=== PATIENT | female | born 1935 | race Caucasian/White ===

== ENCOUNTER 2018-05-27 06:14 | Inpatient (IN) ==
--- NOTE | 2018-05-27 06:29 | History & Physical Report ---
Date of Encounter: 05/27/18 Time of Encounter: 06:29 24 Hour HP Update - Instructions Instructions: If the History and Physical is less than 30 days old and was completed prior to A.M. admission and or procedure and has NOT been updated on calendar day of procedure please complete this update prior to performing procedure. - Update Patient reports changes in Medical Condition: No Changes in examination, assessment, or condition: No Changes in Medication: No Preop tests/diagnostics Reviewed: Yes Surgery Remains Indicated: Yes Consent for Planned Operative Procedure(s) Verified: Yes - Pre-Operative Checklist Preoperative Checklist Indicated: No Prophylactic Antibiotic Ordered: Yes Is VTE Prophylaxis Indicated?: Yes
[2018-05-27] MEDS ORDERED: CeFAZolin Syr 2,000MG/20 ML 2,000 MG/20 ML SYRINGE IVPB ONE (06:33)
[2018-05-27] MEDS ORDERED: Ringers Solution, Lactated 1,000 ML IVC SCH ×2 (06:45→13:27)
[2018-05-27] MEDS ORDERED: Lidocaine -MPF 2% 2 ML VIAL ONE (06:57)
[2018-05-27] MEDS ORDERED: *HR* Succinylcholine 200 MG/10 ML VIAL IVP ONE (06:57)
[2018-05-27] MEDS ORDERED: Ondansetron 4 MG/2 ML VIAL ONE (06:57)
[2018-05-27] MEDS ORDERED: Dexamethasone 4 MG/ML VIAL ONE (06:57)
[2018-05-27] MEDS ORDERED: *HR* Propofol 200 MG/20 ML VIAL IVP ONE (06:57)
[2018-05-27] MEDS ORDERED: Lidocaine -MPF 4% 5 ML AMPUL ONE (07:04)
[2018-05-27] MEDS ORDERED: *HR* FentaNYL (PF) 100 MCG/2 ML VIAL ONE (07:06)
--- NOTE | 2018-05-27 07:17 | Anesthesia Evaluation PreOp ---
Date of Encounter: 05/27/18 Time of Encounter: 07:17 - Past History Planned Operation: Left Total Shoulder Cardiac History: HTN, Hyperlipidemia Pulmonary History: Denies Any Significant HX IP PARALEGAL History: CVA (S/P CVA in 1999 residual sensitivity to sound, last dose plavix 05/26/2018 at 0700) Other Medical History: Other (glaucoma) Anesthesia History: No Prior Anesthetic Complications, Past Anesthesia Alcohol Use: none Drug use: none Medications and Allergies Ciprofloxacin [Cipro] 500 mg PO BID #14 tablet 01/22/17 [Rx] Plavix 01/22/17 [History] Allergy/AdvReac Type Severity Reaction Status Date / Time bromide salts Allergy Hives Verified 01/22/17 17:41 fentanyl Allergy Confusion Verified 01/22/17 17:41 - Meds/Allergy Pre-op Review Medications Reviewed: Yes Allergies Reviewed: Yes Beta Blockers on Current Med List: No Anesthesia Results - Labs Laboratory Tests 05/23/18 05/23/18 05/23/18 09:55 09:55 09:55 WBC 9.5 Hgb 14.8 Hct 44.5 Plt Count 217 PT 11.5 INR 1.0 APTT 28.1 Sodium 137 Potassium 4.2 BUN 16 Creatinine 0.57 L - Imaging EKG: report reviewed (05/23/2018 SINUS RHYTHM WITH SINUS ARRHYTHMIA LEFT ATRIAL ENLARGEMENT BORDERLINE LEFT AXIS DEVIATION POSSIBLE RIGHT VENTRICULAR CONDUCTION DELAY) Anesthesia Exam O2 Sat Height 1.73 m Height 1.73 m Weight 57.606 kg Weight 57.606 kg O2 Sat by Pulse Oximetry 92 Vital Signs Temp Pulse Resp BP Pulse Ox 97.6 F 80 18 150/90 92 05/27/18 06:36 05/27/18 06:36 05/27/18 06:36 05/27/18 06:36 05/27/18 06:36 Height: 5'8'' Weight: 127 lbs NPO (# of Hours): 8 Pain Scale: 0 Pain Scale Used: Numeric (1 - 10) - HEENT Pupil (Motor): EOMI Mallampati: II Teeth: Normal Denture Type: Lower: Partial Oral Opening: Greater than 3 - IP PARALEGAL LOC: Oriented IP PARALEGAL Motor: Normal RUE, Normal LUE, Normal RLE, Normal LLE, Normal Face IP PARALEGAL Sensory: Normal: RUE, LUE, RLE, LLE, Face - Cardiac Rhythm: Regular Murmur: None - Pulmonary Breath Sounds: bilateral Clear Respiratory Effort: Symmetrical Anesthesia Assess/Plan ASA Score: 3 Level of consciousness: Cooperative, Oriented, Tranquil Anesthetic Plan: General, Regional Nerve Block Regional Nerve Block Plan: Supraclavicular Monitoring Plan: Standard Monitors Recovery Plan: PACU
[2018-05-27] MEDS ORDERED: ROPIVACAINE HCL/PF 0.5% 30 ML VIAL ONE (07:19)
[2018-05-27] MEDS ORDERED: Bupivacaine/Clonidine Syringe 1 EACH SYRINGE ONE (07:19)
[2018-05-27] MEDS ORDERED: Ethanol\\Acetic Acid\\Na Ace\\Ben 1,000 ML IRRIG.SOLN IR ONE (07:39)
[2018-05-27] MEDS ORDERED: EPHEDrine 50 MG/ML VIAL ONE (08:10)
[2018-05-27] MEDS ORDERED: *HR* Promethazine 25 MG/ML VIAL IVP PRN (08:25)
[2018-05-27] MEDS ORDERED: *HR* OxyCODONE Immed Rel 5 MG TABLET PO PRN ×2 (08:25→13:27)
--- NOTE | 2018-05-27 08:29 | Anesthesia Procedures ---
Date of Encounter: 05/27/18 Time of Encounter: 07:55 Procedures: Anesthesia - Nerve Block Procedure Date: 05/27/18 Time: 07:55 Surgical Procedure: left shoulder total Checklist: Correct Patient Identifier, Correct procedure, History checked Correct side: Left Monitor Applied: EKG, BP, Pulse Oximetry Supplemental Oxygen via Nasal Cannula (L/min): 2 Sedation: Fentanyl (mcg): 50 Indication: Post Op Analgesia Pre-op Neuro Deficits: No Block Type: Supraclavicular, Other (ICB/ICP) Catheter placed: No Sterile Technique: Yes Ultrasound used: Yes Anatomy identified: Yes Visual spread of Local: Yes Neuro Stimulation: No Blood on Needle Aspiration: No Smooth Injection of Local: Yes Pain with Injection of Local: No Prep: Chlorhexadine Needle: 22 x 50 mm Stimuplex Local: 0.25% Bupivicaine w/Clonidine 20 mcg/cc (8ml ), Ropivacaine (0.5% with 8mg of decadron 30 ml) Volume (cc): 38 total Number of Attempts: 1 Complications: None/effective block Vitals: Vital Signs/O2 Sat, Most Current Temp Pulse Resp BP Pulse Ox 97.6 F 67 18 184/102 98 05/27/18 06:36 05/27/18 07:45 05/27/18 07:45 05/27/18 07:54 05/27/18 07:45
--- NOTE | 2018-05-27 08:53 | Orthopedic Operative Note ---
Date of procedure: 05/27/18 Pre-op diagnosis: left shoulder cuff tear arthropathy Post-op diagnosis: same Procedure: Procedure: Total Shoulder Replacment Reverse, left Estimated blood loss: 50 cc Hardware: Metal and polyethylene replacement: Arthrex 24, +4 , 25 screw glenoid baseplate, 2 4.5 screws. 2 5.5 screw, 39+4 glenosphere, 8 apex humeral stem, poly insert 6 Kristin Exam Under anesthesia: Full motion anterior instability Procedural Notes: Grade 4 arthritic changes humeral head glenoid socket, significant gleno humeral medialization. Tear rotator cuff Operative procedure: The patient was brought to the operating room and placed on the operating room table. After general anesthesia was administered the operative shoulder was examined. Findings were noted. The patient was placed in the modified beachchair position. All pressure points were padded appropriately. And the head was stabilized in the neutral position. The operative extremity was prepped and draped in the sterile surgical fashion. The patient received IV antibiotics prior to skin incision. A standard deltopectoral approach was made to the operative shoulder. Incision was made to the skin and subcutaneous tissue,hemo stasis was obtained with Bovie cautery. Using careful blunt dissection the cephalic vein was identified and mobilized medially. The deltopectoral interval was developed and the clavipectoral fascia was incised. The subscap was released off the lesser tuberosity and tagged with #2 FiberWire suture subscap irreparable. The humerus was dislocated patient noted to have irreparable tear supraspinatus tendon, and the humeral cut was made along the anatomic neck. Patient noted to have significant medialization, grade 4 arthritic changes glenoid and humeral head. Anterior and posterior Bankart retractors were placed to expose the glenoid. The glenoid guide was seated and the centering hole was made. It was reamed with the appropriate reamer. The 24, +4, 25 mm screw, baseplate was seated and secured with (2) 4.5 screws and 2 5.5 screw. The baseplate was irrigated and dried and the 39+4 Glenosphere was seated and secured with the Lindsey taper. The Linsdey taper was tested and found to be secure the humerus was redislocated and prepared with the diaphyseal reamers, followed by a broaching process up to the appropriate size 8 apex in the patient's anatomic version. The metaphyseal reamer was then utilized. Trial reduction found the shoulder to be relocatable. Trial components were removed and 8 apex stem was impacted in place in the patient's anatomic version. Trial reduction found the shoulder to be relocatable and stable with the appropriate 6 Kristin Trial component was removed and the real implant was seated and secured the shoulder was reduced. The shoulder had excellent motion and excellent stability and no evidence of dislocation. The deep tissue was irrigated with pulse irrigation. The PA close the shoulder. The deltopectoral interval was closed with a running #1 PDS suture, subcutaneous tissue was irrigated and closed with 0 PDS suture, the skin was closed with Dermabond. The patient was placed in a sterile dressing, abduction brace and extubated. The patient was then transferred to the recovery room in stable condition. Anesthesia: FREIDA Surgeon: Lamberto Farga Was there an assistant professor of biochemistry present: Yes Hearing Examiner: Iona Palacios Estimated blood loss (cc): 50 Condition: stable Disposition: PACU
[2018-05-27 09:40] LABS: Hematocrit 41.2 % (35.3-44.9); Hemoglobin 13.6 g/dL (11.5-15.4)
--- NOTE | 2018-05-27 09:42 | Anesthesia Evaluation Post Op ---
Date of Encounter: 05/27/18 Time of Encounter: 09:41 - Vital Signs Vital Signs: Vital Signs/O2 Sat, Most Current Temp Pulse Resp BP Pulse Ox 98.7 F 66 13 146/89 99 05/27/18 09:35 05/27/18 09:35 05/27/18 09:35 05/27/18 09:35 05/27/18 09:35 - Lungs Lungs: Clear Ascult./Percussion - Airway Airway: Non-obstructed - Cardiovascular Regular Rate - Mental Status Mental Status: Alert & Oriented, Answers Appropriately - Pain Pain Scale: 0 Pain Scale used: Numeric (1 - 10) - Nausea Vomiting Nausea Vomiting: Not Present - Hydration Hydration: Ice chips, Has not voided - Discharge PostOp Status: Transfer Patient to floor
[2018-05-27] MEDS ORDERED: Sennosides 8.6 MG TABLET PO PRN (13:27)
[2018-05-27] MEDS ORDERED: Temazepam 15 MG CAPSULE PO PRN (13:27)
[2018-05-27] MEDS ORDERED: NON-FORMULARY MEDICATION 1 EACH EACH (Alendronate Sodium [Alendronate Sodium] 70 MG) PO SCH (13:27)
[2018-05-27] MEDS ORDERED: Ondansetron 4 MG/2 ML VIAL IVP PRN (13:27)
[2018-05-27] MEDS ORDERED: MOM Conc 10 ML UD.LIQ PO PRN (13:27)
[2018-05-27] MEDS ORDERED: Naloxone 0.4 MG/ML INJ IVP PRN (13:27)
[2018-05-27] MEDS ORDERED: traMADol 50 MG TABLET PO PRN (13:27)
--- NOTE | 2018-05-27 16:35 | Discharge Summary ---
Orders not resulted at time of discharge: Pending orders 05/27/18 07:34 US anesthesia pain block [US] Routine 05/27/18 08:51 Surgical Pathology [PTH] Routine 05/28/18 04:00 Basic Metabolic Panel AM 0400 Hemoglobin and Hematocrit [HEME] AM 0400 05/29/18 04:00 Basic Metabolic Panel AM 0400 Hemoglobin and Hematocrit [HEME] AM 0400 Date of Encounter: 05/31/18 Time of Encounter: 11:12 - Discharge Diagnosis (1) Status post reverse total replacement of left shoulder Priority: Primary Status: Acute Comments: Opsite dressing, leave intact until first post-operative visit. Zipline in place, plan to remove at post-operative day #14-16. If dressing becomes >50% saturated, contact office, remove dressing and place appropriate dressing in its place. Do not allow for dressing to get wet. Shoulder Precautions x 6 weeks. Apply cold therapy wrap 3-6x/day for 20 minutes at a time. Encourage ambulation throughout the day. Use Incentive spirometer 10x/hour. Elevate affected extremity above heart as tolerated. NWB to affected upper extremity x 6 weeks. Will remove brace at first post-operative appointment. OK to remove during PT/OT and Home exercises. (2) Rotator cuff arthropathy of left shoulder Priority: Primary Status: Acute (3) HTN (hypertension) Priority: Secondary Status: Chronic Qualifiers: Hypertension type: essential hypertension Qualified Code(s): I10 - Essential (primary) hypertension (4) History of CVA (cerebrovascular accident) Priority: Secondary Status: Chronic (5) Constipation Priority: Secondary Status: Acute Comments: Chronic in nature 05/29 - Abdominal pain, afebrile. WBC normal. XRAY showed fecal impaction in rectum Disimpaction on 05/29 evening; improvement with abdominial pain Resolved by 05/30. Qualifiers: Constipation type: unspecified constipation type Qualified Code(s): K59.00 - Constipation, unspecified - Hospital Course Hospital course: Ms. Yost is a 82 year old female, POD#3Left TSR-reverse - ] . Patient had uneventful postoperative course. Stable for discharge. Patient seen at bedside, without complaints. A&O x 3 Afebrile, vital signs stable. Vital Signs Temp Resp BP Pulse Ox 05/30/18 14:07 98.1 F 16 131/78 98 Labs reviewed. H/H - stable, asymptomatic Laboratory Results - last 48 hr 05/29/18 17:19 WBC 11.8 H RBC 3.72 L Hgb 12.1 Hct 35.5 MCV 95.4 MCH 32.5 MCHC 34.1 RDW 12.6 Plt Count 198 MPV 11.0 Immature Gran % 0.3 Seg Neutrophils % 73.8 Lymphocytes % 15.6 Monocytes % 9.1 Eosinophils % 0.8 Basophils % 0.4 Neutrophils # 8.7 Lymphocytes # 1.8 Monocytes # 1.1 Eosinophils # 0.1 Basophils # 0.1 Pain control: adequate Participating in PT. All questions and concerns addressed. Educated on use of incentive spirometer. Encouraged ambulation and proper hydration. Patient educated on post-operative restrictions and post-operative care. Assessment and plan: Continue with postoperative care Constipation: Disimpacted on 05/30 - no abdominal pain at discharge. Discharge plan: [facility] , discharge today - Time Spent with Patient Total time spent providing and/or coordinating discharge services: - Discharge Medications Home Medications: RX: Alendronate Sodium 70 mg PO MO 05/27/18 [History] RX: Atorvastatin Calcium [Lipitor] 20 mg PO HS 05/27/18 [History] RX: Celecoxib [Celebrex] 200 mg PO DAILY 05/27/18 [History] RX: Cholecalciferol (D-3) [Vitamin D] 2,000 unit PO DAILY 05/27/18 [History] RX: Clopidogrel [Plavix] 75 mg PO DAILY 05/27/18 [History] RX: Glucosamine Sulfate Dipot Chlr [Glucosamine] 1,000 mg PO DAILY 05/27/18 [History] RX: Latanoprost [Xalatan] 1 drop BOTH EYES HS 05/27/18 [History] RX: Lisinopril [Zestril] 20 mg PO DAILY 05/27/18 [History] RX: Loratadine [Allergy Relief] 10 mg PO DAILY 05/27/18 [History] RX: Multivitamin [One Daily Essential] 1 tab PO DAILY 05/27/18 [History] RX: Oxybutynin Chloride [Ditropan Xl] 10 mg PO DAILY 05/27/18 [History] RX: Timolol Maleate 0.5% 1 drop BOTH EYES BID 05/27/18 [History] RX: Ubidecarenone/Vit E Acetate [Co Q-10 100 mg Softgel] 1 cap PO DAILY 05/27/18 [History] RX: OxyCODONE Immed Rel [Roxicodone 5 MG] 5 mg PO Q4HR PRN MDD PAin 05/30/18 [History] Allergies/Adverse Reactions: Allergy/AdvReac Type Severity Reaction Status Date / Time bromide salts Allergy Hives Verified 05/27/18 07:34 fentanyl AdvReac Rash Verified 05/27/18 07:34 Date of admission: 05/27/18 12:04 Primary care physician: Melissa Cotto Consults: 05/27/18 13:27 Consult to Occupational Therapy [CONS] Routine Comment: post shoulder surgery Reason for Consult: post shoulder surgery Does patient have active BEDREST order?: No Is patient medically & hemodynamically stable?: Yes Consult to Physical Therapy [CONS] Routine Comment: post shoulder surgery Reason for Consult: post shoulder surgery Does patient have active BEDREST order?: No Is patient medically & hemodynamically stable?: Yes RT Post Op Consult [CONS] Routine 05/27/18 14:25 Consult to Process Designer [CONS] Routine Reason for SW Consult: Discharge planning Anticipated date of discharge: 05/30/18 - VTE Documentation of Mechanical Device: Venous foot pump, device Labs on day of discharge: Labs from last 24 hours 05/27/18 09:23 Hgb 13.6 Hct 41.2 - Impressions ITS Impressions Shoulder X-Ray 05/27/18 08:04 IMPRESSION: Normal postoperative changes of recent reverse left shoulder arthroplasty. D/ / 05/27/2018 12:27:14 Jeet Leal MD / [facility] Interpreting Provider: Jeet Leal MD - Patient Status Disposition: Transfer Inpatient Rehab Fac Condition: Good Functional capacity at discharge: independent ambulation Overall status at discharge: patient is progressing back to baseline - Discharge Instructions Follow Up With: Iona Falk DO [Primary Care Provider] - Additional Instructions: Discharge Instructions: Total Shoulder Please call [facility] ([phone]), your Primary Care Physician, or report to the Emergency Room if you have any of the following symptoms: Nausea, vomiting, fever greater that 101.5, swelling, chest pain, shortness of breath, increased pain/redness/drainage/odor for your incision site, numbness/tingling, or any other concerning symptoms. ACTIVITY: Always keep your arm in the sling. Do not raise your arm away from your body. Do not use your arm to help with getting in or out of bed. No weight bearing permitted. Only perform those exercises given to you by your therapist. Incentive Spirometer 10 times an hour. MEDICATIONS: Upon discharge resume your home medications. Take all the medications as prescribed. Take a stool softener if taking narcotic pain medications. Stool softeners are only effective if you drink enough fluids. Drink 6-8 glass of water or fluids a day, unless this is not allowed for another health problem. Despite using stool softeners, if you haven't had a bowel movement in 3 days, please switch to a gentle laxative. Gentle laxatives are sold over the counter. You should have a bowel movement within 24 hours, if not call the office. You will be discharged from the hospital with a prescription for pain medication. You are encouraged to decrease the use of narcotic pain medication as tolerated. Should you require a refill, please call the office. [facility] prescribes narcotic pain medication for only 4-6 weeks after surgery. If you require pain medication beyond this time period, you may be referred to your Primary Care Physician or to the Pain Clinic for further evaluation. Plan ahead for refills on pain medication as many narcotics either need to be picked up at the office or mailed. It is best to call 48-72 hours in advance of needing a prescription refill so you don't run out of medication. To help control the post-operative pain, you may take NSAIDs (Aleve,Advil, Motrin, Ibuprofen, Naprosyn) or Tylenol as prescribed on the bottle in addition to the pain medication. WOUND CARE: Leave the dressing on for 7-10 days. You may change the dressing if it becomes saturated greater than 50%. Do not get the dressing wet at anytime. Wash your hands with antibacterial soap, rinse and dry prior to any wound care. If you have ron the visiting nurse or rehab facility can remove the stapes 10-14 days after surgery and place steri-strips across the wound. Leave the steri-strips in place until they fall off on their own. You may let water from the shower run on top of the steri-strips. If you do not have a visiting nurse or rehab facility, you will need to return to the office at 10-14 days for the ron to be removed. If you have itching or redness around the dressing call the office. FOLLOW-UP: Please follow up with your surgeon in the orthopedic clinic, as scheduled
[2018-05-27] MEDS: Loratadine 10 MG TABLET PO SCH (17:24)
[2018-05-27] MEDS: Cholecalciferol (D-3) 1,000 UNIT TABLET PO SCH (17:25)
[2018-05-27] MEDS: Lisinopril 20 MG TABLET PO SCH (17:25)
[2018-05-27] MEDS: Multivit/Ca/Min/Fe/FA 1 TAB TABLET PO SCH (17:25)
[2018-05-27] MEDS: *HR* Enoxaparin 30 MG/0.3 ML SYRINGE SQ SCH (17:27)
[2018-05-27] MEDS ORDERED: *HR* Enoxaparin 30 MG/0.3 ML SYRINGE SQ SCH (18:00)
--- NOTE | 2018-05-27 19:48 | Physician Discharge Referral ---
ExtendedCare Referral Info Transfer To: [facility] Provider in Charge: Provider in Charge after Transfer: PCP Institutional Level of Care: Skilled - Diagnosis (1) Status post reverse total replacement of left shoulder Priority: Primary Status: Acute (2) Rotator cuff arthropathy of left shoulder Priority: Primary Status: Acute (3) HTN (hypertension) Priority: Secondary Status: Acute (4) History of CVA (cerebrovascular accident) Priority: Secondary Status: Acute Expected Duration of Placement: < 30 days Prognosis: Good Aware of Diagnosis: Patient Aware of Prognosis: Patient - Transfer Medications Home Medications: Alendronate Sodium 70 mg PO MO 05/27/18 [History] Atorvastatin Calcium [Lipitor] 20 mg PO HS 05/27/18 [History] Celecoxib [Celebrex] 200 mg PO DAILY 05/27/18 [History] Cholecalciferol (D-3) [Vitamin D] 2,000 unit PO DAILY 05/27/18 [History] Clopidogrel [Plavix] 75 mg PO DAILY 05/27/18 [History] Glucosamine Sulfate Dipot Chlr [Glucosamine] 1,000 mg PO DAILY 05/27/18 [History] Latanoprost [Xalatan] 1 drop BOTH EYES HS 05/27/18 [History] Lisinopril [Zestril] 20 mg PO DAILY 05/27/18 [History] Loratadine [Allergy Relief] 10 mg PO DAILY 05/27/18 [History] Multivitamin [One Daily Essential] 1 tab PO DAILY 05/27/18 [History] OxyCODONE Immed Rel [Roxicodone 5 MG] 5 mg PO Q6HR PRN 7 Days #28 tablet 05/27/18 [Rx] Oxybutynin Chloride [Ditropan Xl] 10 mg PO DAILY 05/27/18 [History] Timolol Maleate 0.5% 1 drop BOTH EYES DAILY 05/27/18 [History] Tramadol HCl [Ultram] 50 mg PO QID PRN 05/27/18 [History] Ubidecarenone/Vit E Acetate [Co Q-10 100 mg Softgel] 1 cap PO DAILY 05/27/18 [History] Allergies/Adverse Reactions: Allergy/AdvReac Type Severity Reaction Status Date / Time bromide salts Allergy Hives Verified 05/27/18 07:34 fentanyl AdvReac Rash Verified 05/27/18 07:34 - Respiratory Orders None Smoking Cessation: Smoking cessation has been advised. For more information, call the [place] Tobacco Quit Line at 3-605-RUIR-NOW. - Ancillary Orders May use pressure relief devices daily prn, May go on NARESH w/family/respon alliance party w/meds at nurse discretion PRN - Advance Directives Code Status: Full Code - Mobility Orders Ambulate - Rehabiliation Orders Rehab Potential: Good Rehab Orders: Sternal Precautions, ROM Exercises, Evaluation for Physical Therapy, Evaluation for Occupational Therapy - Treatments Skin tear care topically daily PRN per policy, Fleet enema rectally every other day PRN cleansing purposes List/Other: Opsite dressing, leave intact until first post-operative visit. Zipline in place, plan to remove at post-operative day #14-16. If dressing becomes >50% saturated, contact office, remove dressing and place appropriate dressing in its place. Do not allow for dressing to get wet. Shoulder Precautions x 6 weeks. Apply cold therapy wrap 3-6x/day for 20 minutes at a time. Encourage ambulation throughout the day. Use Incentive spirometer 10x/hour. Elevate affected extremity above heart as tolerated. NWB to affected upper extremity x 6 weeks. Will remove brace at first post-operative appointment. OK to remove during PT/OT and Home exercises. - Diet Orders Regular CERTIFICATION: I certify that the transfer of the above named patient to an Extended Care Facility is necessary for the continuing treatment of the diagnosis listed. The above information is true and accurate reflection of patient's current condition. Confidential - Redisclosure prohibited without a patient's written consent.
[2018-05-27] MEDS: Latanoprost 2.5 ML BOTTLE BOTH EYES SCH (20:15)
[2018-05-28 05:50] LABS: Hematocrit 37.5 % (35.3-44.9); Hemoglobin 12.4 g/dL (11.5-15.4)
[2018-05-28] MEDS: *HR* Enoxaparin 30 MG/0.3 ML SYRINGE SQ SCH ×2 (05:54→18:48)
[2018-05-28 06:08] LABS: BUN/Creatinine Ratio 21 (6-26); Blood Urea Nitrogen 13 mg/dL (8-23); Calcium 8.9 mg/dL (8.6-10.3); Carbon Dioxide 24 mEq/L (23-29); Chloride 104 mEq/L (98-107); Glucose 140 mg/dL (70-105); Osmolality,Calculated 286 (280-300); Potassium 3.9 mEq/L (3.5-5.1); Sodium 137 mEq/L (136-145); eGFR For Non-African Americans > 60 (> 60)
--- NOTE | 2018-05-28 06:45 | Orthopedics Progress Note ---
Date of Encounter: 05/28/18 Time of Encounter: 06:44 Subjective Interval history: Patient was seen this morning doing well without complaints. Afebrile vital signs stable. Operative extremity: Neurovascularly intact Dressing clean dry and intact Calves nontender Assessment and plan: Continue with postoperative care Hematocrit 37 Objective Vital signs: Vital Signs Temp Pulse Resp BP Pulse Ox 05/28/18 03:41 98.5 F 82 16 138/70 95 05/27/18 23:42 98.7 F 84 16 114/70 95 05/27/18 20:15 95 05/27/18 18:15 98.3 F 103 16 119/76 95 05/27/18 13:05 94 16 142/91 94 05/27/18 12:05 81 16 167/103 98 05/27/18 11:42 98.7 F 84 16 114/70 95 05/27/18 11:05 97.6 F 80 16 163/96 100 05/27/18 10:35 70 168/92 99 05/27/18 10:19 99 05/27/18 10:05 66 16 169/80 100 05/27/18 09:45 98.7 F 68 14 152/79 99 05/27/18 09:35 98.7 F 66 13 146/89 99 05/27/18 09:25 66 11 141/77 100 05/27/18 09:15 65 14 165/86 100 05/27/18 09:05 97.9 F 78 16 144/83 99 05/27/18 07:54 184/102 05/27/18 07:45 67 18 187/105 98 Intake and Output 05/27/18 05/27/18 05/28/18 15:59 23:59 07:59 Intake Total 200 / 200 240 / 240 300 / 300 Output Total 350 / 350 300 / 300 Balance -150 / -150 240 / 240 0 / 0 Intake: IV Fluids 120 / 120 100 / 100 Ancef Syringe 2,000 MG/20 ML 2, 20 / 20 000 mg In 20 ml @ 200 mls/hr IVPB PREOP ONE Rx#:[id number] Ancef 2,000 MG In 0.9 % Sodium 100 / 100 100 / 100 Chloride 100 ML @ 200 mls/hr IVPB Q8HR JULISA Rx#:[id number] Oral 200 / 200 120 / 120 200 / 200 Output: Urine 300 / 300 300 / 300 Estimated Blood Loss 50 / 50 Other: Meal Dinner Percent of Meal Consumed 100% Weight 57.608 kg Patient Weight 05/28/18 23:59 Weight 57.608 kg - Labs CBC & BMP: 05/28/18 05:15 05/28/18 05:15 Labs: Abnormal lab results Glucose 140 mg/dL (70-105) H 05/28/18 05:15 - VTE Documentation of Mechanical Device: Venous foot pump, device Consult Discharge Plan - Plan Referrals: Iona Falk DO [Primary Care Provider] -
[2018-05-28] MEDS: Loratadine 10 MG TABLET PO SCH (08:44)
[2018-05-28] MEDS: Multivit/Ca/Min/Fe/FA 1 TAB TABLET PO SCH (08:44)
[2018-05-28] MEDS: Cholecalciferol (D-3) 1,000 UNIT TABLET PO SCH (08:45)
[2018-05-28] MEDS: Lisinopril 20 MG TABLET PO SCH (08:46)
[2018-05-28] MEDS: *HR* OxyCODONE/APAP 5/325 TABLET PO PRN ×2 (09:18→15:32)
--- NOTE | 2018-05-28 15:53 | Event Note ---
Date of Encounter: 05/28/18 Time of Encounter: 12:50 PCR - POD#1 s/p left TSR reverse 05/27/18 Patient seen at bedside, without complaints. A&O x 3 Afebrile, vital signs stable. She has HTN and BP has episodes of elevation with pain. asymptomatic dressings had small area of bleeding, appears old. will monitor. NV intact distally. Labs reviewed. H/H - 12.4/37.5 stable, asymptomatic Pain control: adequate Participating in PT. All questions and concerns addressed. Educated on use of incentive spirometer. Encouraged ambulation and proper hydration. Patient educated on post-operative restrictions and post-operative care. Assessment and plan: Continue with postoperative care Discharge plan: [facility], pending acceptance
[2018-05-28] MEDS: (Ubidecarenone/Vit E Acetate [Co Q-10 100 Mg Softgel] PO SCH (19:49)
[2018-05-28] MEDS: Latanoprost 2.5 ML BOTTLE BOTH EYES SCH ×2 (23:21→23:23)
[2018-05-29] MEDS: *HR* Enoxaparin 30 MG/0.3 ML SYRINGE SQ SCH ×2 (05:03→18:18)
[2018-05-29 05:16] LABS: Hematocrit 33.1 % (35.3-44.9); Hemoglobin 11.1 g/dL (11.5-15.4)
[2018-05-29 05:34] LABS: BUN/Creatinine Ratio 24 (6-26); Blood Urea Nitrogen 12 mg/dL (8-23); Calcium 8.5 mg/dL (8.6-10.3); Carbon Dioxide 25 mEq/L (23-29); Chloride 99 mEq/L (98-107); Glucose 120 mg/dL (70-105); Osmolality,Calculated 269 (280-300); Sodium 129 mEq/L (136-145); eGFR For Non-African Americans > 60 (> 60)
--- NOTE | 2018-05-29 08:39 | Orthopedics Progress Note ---
Date of Encounter: 05/29/18 Time of Encounter: 08:38 Subjective Interval history: Patient was seen this morning doing well without complaints. Afebrile vital signs stable. Operative extremity: Neurovascularly intact Dressing clean dry and intact Calves nontender Assessment and plan: Continue with postoperative care Objective Vital signs: Vital Signs Temp Pulse Resp BP Pulse Ox 05/29/18 07:24 98.8 F 87 17 183/95 97 05/29/18 00:12 97.7 F 71 16 153/87 18 05/28/18 21:59 94 05/28/18 19:47 98.3 F 85 16 106/68 94 05/28/18 16:18 97.6 F 71 16 130/68 98 05/28/18 11:30 98.1 F 71 18 149/84 100 Intake and Output 05/28/18 05/29/18 05/29/18 23:59 07:59 15:59 Other: # Voids 1 1 - Labs CBC & BMP: 05/29/18 05:02 05/29/18 05:02 Labs: Abnormal lab results Hgb 11.1 g/dL (11.5-15.4) L 05/29/18 05:02 Hct 33.1 % (35.3-44.9) L 05/29/18 05:02 Sodium 129 mEq/L (136-145) L 05/29/18 05:02 Creatinine 0.49 mg/dL (0.60-1.20) L 05/29/18 05:02 Glucose 120 mg/dL (70-105) H 05/29/18 05:02 Calculated Osmolality 269 (280-300) L 05/29/18 05:02 Calcium 8.5 mg/dL (8.6-10.3) L 05/29/18 05:02 - VTE Documentation of Mechanical Device: Venous foot pump, device Consult Discharge Plan - Plan Referrals: Iona Falk DO [Primary Care Provider] -
[2018-05-29] MEDS: Multivit/Ca/Min/Fe/FA 1 TAB TABLET PO SCH (10:08)
[2018-05-29] MEDS: Lisinopril 20 MG TABLET PO SCH (10:08)
[2018-05-29] MEDS: Cholecalciferol (D-3) 1,000 UNIT TABLET PO SCH (10:09)
[2018-05-29] MEDS: Loratadine 10 MG TABLET PO SCH (10:11)
[2018-05-29] MEDS: (Ubidecarenone/Vit E Acetate [Co Q-10 100 Mg Softgel] PO SCH ×2 (10:14→11:30)
[2018-05-29] MEDS: *HR* OxyCODONE/APAP 5/325 TABLET PO PRN (14:53)
[2018-05-29 17:34] LABS: Basophils # 0.1 K/mcL (0.0-0.2); Basophils % 0.4 %; Eosinophils # 0.1 K/mcL (0.0-0.6); Eosinophils % 0.8 %; Hematocrit 35.5 % (35.3-44.9); Hemoglobin 12.1 g/dL (11.5-15.4); Immature Granulocytes % 0.3 % (0-4); Lymphocytes # 1.8 K/mcL (0.6-4.6); Lymphocytes % 15.6 %; Mean Corpuscular HGB Conc 34.1 g/dL (31.6-35.5); Mean Corpuscular Hemoglobin 32.5 pg (28.0-33.3); Mean Corpuscular Volume 95.4 fL (83.0-100.0); Monocytes # 1.1 K/mcL (0.0-1.3); Monocytes % 9.1 %; Neutrophils # 8.7 K/mcL (1.6-8.9); Platelet Count 198 K/mcL (140-400); Red Blood Count 3.72 M/mcL (3.82-4.97); Red Cell Distribution Width 12.6 % (11.5-14.5); Segmented Neutrophils % 73.8 %
--- NOTE | 2018-05-29 18:52 | Event Note ---
Date of Encounter: 05/29/18 Time of Encounter: 12:00 PCR - POD#2 s/p left TSR reverse 05/27/18 Patient seen at bedside. A&O x 3. Patient in visible discomfort in abdomen. abdomen soft to palpation and patient denies pain, only has discomfort in abdomen. She states she had a small BM yesterday but very uncomfortable since then. She states she often has to disimpact herself at home. Discussed that anesthesia and pain medications can also contribute to constipation. Will add miralax. KUB also ordered and later showed nonobstructive bowel gas patterns with no significiant amount of retained fecal matter in bowels but did have fecal impaction to rectum. Disimpaction recommended. If there is not much improvement to abdomen after this then will plan for CT abdomen and hospitalist consultation for further evaluation. Afebrile, vital signs stable. She has HTN and BP has episodes of elevation with pain. asymptomatic Small amount of drainage on dressing is old same as yesterday. To be changed before discharge. NV intact distally. Later evaluation around 5:30pm and patient concern for increased swelling to elbow. She admits she has been focused on abdominal discomfort and not doing her exercises for motion of elbow. She does have full ROM of elbow and hand with no pain to palpation of arm or with motion. Will proceed with doppler to rule out DVT. Labs reviewed. H/H - .1 stable, asymptomatic NA 129 - will add supplementation Pain control: adequate to shoulder Participating in PT. All questions and concerns addressed. Educated on use of incentive spirometer. Encouraged ambulation and proper hydration. Patient educated on post-operative restrictions and post-operative care. Assessment and plan: Continue with postoperative care Discharge plan: [facility] accepted 05/30, pending abdominal workup
[2018-05-29] MEDS: Latanoprost 2.5 ML BOTTLE BOTH EYES SCH (22:36)
[2018-05-29] MEDS: Simethicone 80 MG TAB.CHEW PO SCH (22:36)
[2018-05-30] MEDS: *HR* Enoxaparin 30 MG/0.3 ML SYRINGE SQ SCH (05:49)
[2018-05-30] MEDS: *HR* OxyCODONE/APAP 5/325 TABLET PO PRN ×2 (06:03→15:42)
--- NOTE | 2018-05-30 06:25 | Orthopedics Progress Note ---
Date of Encounter: 05/30/18 Time of Encounter: 06:25 Subjective Interval history: Patient was seen this morning doing better now that disimpacted. Afebrile vital signs stable. Operative extremity: Neurovascularly intact Dressing clean dry and intact Calves nontender Assessment and plan: Continue with postoperative care Possible discharge today Objective Vital signs: Vital Signs Temp Pulse Resp BP Pulse Ox 05/30/18 03:29 98.5 F 77 16 145/81 94 05/29/18 23:30 97.4 F L 70 17 155/86 97 05/29/18 19:05 98.5 F 74 18 162/78 98 05/29/18 16:48 98.5 F 86 97 128/88 05/29/18 11:53 99.8 F H 84 17 161/105 97 05/29/18 07:24 98.8 F 87 17 183/95 97 Intake and Output 05/29/18 05/29/18 05/30/18 15:59 23:59 07:59 Intake Total 0 / 0 650 / 650 Balance 0 / 0 650 / 650 Intake: Oral 0 / 0 650 / 650 Other: Meal Breakfast Dinner Percent of Meal Consumed 0% 0% Stool Size Moderate Stool Consistency soft formed Stool Characteristics Normal for Patient Stool Color Brown # Voids 1 1 # Bowel Movements 1 Weight 60.2 kg Patient Weight 05/30/18 23:59 Weight 60.2 kg - Labs CBC & BMP: 05/29/18 17:19 05/29/18 05:02 Labs: Abnormal lab results WBC 11.8 K/mcL (4.3-11.1) H 05/29/18 17:19 RBC 3.72 M/mcL (3.82-4.97) L 05/29/18 17:19 Sodium 129 mEq/L (136-145) L 05/29/18 05:02 Creatinine 0.49 mg/dL (0.60-1.20) L 05/29/18 05:02 Glucose 120 mg/dL (70-105) H 05/29/18 05:02 Calculated Osmolality 269 (280-300) L 05/29/18 05:02 Calcium 8.5 mg/dL (8.6-10.3) L 05/29/18 05:02 - VTE Documentation of Mechanical Device: Venous foot pump, device Consult Discharge Plan - Plan Referrals: Iona Falk DO [Primary Care Provider] -
[2018-05-30] MEDS: Lisinopril 20 MG TABLET PO SCH (08:50)
[2018-05-30] MEDS: Simethicone 80 MG TAB.CHEW PO SCH (08:51)
[2018-05-30] MEDS: Multivit/Ca/Min/Fe/FA 1 TAB TABLET PO SCH (08:52)
[2018-05-30] MEDS: Loratadine 10 MG TABLET PO SCH (08:52)
[2018-05-30] MEDS: Cholecalciferol (D-3) 1,000 UNIT TABLET PO SCH (08:52)
[2018-05-30] MEDS: (Ubidecarenone/Vit E Acetate [Co Q-10 100 Mg Softgel] PO SCH (08:52)
--- NOTE | 2018-05-30 12:12 | Event Note ---
Date of Encounter: 05/30/18 Time of Encounter: 14:47 Stable for discharge.
[2018-05-30 14:08] VITALS: BP 131/78
== END 2018-05-30 18:00 | DRG 483 ==
LOC: SAMDAY 06:14 → 3NENU 12:04
PROVIDERS: ADMIT Orthopaedic Surgery; ATTEND Orthopaedic Surgery

== ENCOUNTER 2020-04-03 16:58 | Inpatient (IN) ==
[2020-04-03] MEDS ORDERED: 0.9 % Sodium Chloride 1,000 ML IVC ONE ×2 (17:37→19:09)
[2020-04-03 18:11] LABS: Bilirubin,Urine Negative (Negative); Blood,Urine Large (Negative); Clarity,Urine Clear (Clear); Glucose,Urine (UA) Normal (Normal); Ketones,Urine Negative (Negative); Leukocyte Esterase,Urine Negative (Negative); Nitrite,Urine Negative (Negative); Protein,Urine >=300 mg/dL (Neg-Trace); Specific Gravity,Urine >= 1.030 (1.010-1.025); Urobilinogen,Urine Normal (Normal)
[2020-04-03 18:12] LABS: Color,Urine Dark Yellow (Yellow)
[2020-04-03 18:16] LABS: Amorphous Sediment,Urine Few per hpf (None-Few); Hyaline Casts,Urine Few per lpf (None Seen); Mucus,Urine Few per lpf (None-Few); Squamous Epithelial Cell,Urine Few per hpf (None-Few); WBC,Urine 0-3 per hpf (0-3)
[2020-04-03 18:19] LABS: Basophils % 0.2 %; Lymphocytes % 3.5 %; Red Blood Count 5.72 M/mcL (3.82-4.97)
[2020-04-03 18:20] LABS: Hematocrit 53.5 % (35.3-44.9); Hemoglobin 17.9 g/dL (11.5-15.4); Immature Granulocytes % 0.8 % (0-4); Lymphocytes # 0.9 K/mcL (0.6-4.6); Mean Corpuscular HGB Conc 33.5 g/dL (31.6-35.5); Mean Corpuscular Hemoglobin 31.3 pg (28.0-33.3); Mean Corpuscular Volume 93.5 fL (83.0-100.0); Mean Platelet Volume 11.6 fL (9.4-12.4); Monocytes # 1.3 K/mcL (0.0-1.3); Monocytes % 5.3 %; Neutrophils # 22.8 K/mcL (1.6-8.9); Platelet Count 202 K/mcL (140-400); Prothrombin Time 11.9 Seconds (9.4-12.1); Red Cell Distribution Width 15.2 % (11.5-14.5); Segmented Neutrophils % 90.2 %; White Blood Count 25.3 K/mcL (4.3-11.1)
[2020-04-03 18:22] LABS: Activated Partial Thrombo Time 32.3 Seconds (26.0-36.0); Basophils # 0.1 K/mcL (0.0-0.2)
[2020-04-03 18:31] LABS: Alanine Aminotransferase 37 Units/L (7-52); Albumin 3.9 g/dL (3.5-5.7); Albumin/Globulin Ratio 1.3 (1.1-2.2); Alkaline Phosphatase 68 Units/L (34-104); Aspartate Amino Transferase 96 Units/L (13-39); BUN/Creatinine Ratio 42 (6-26); Bilirubin,Total 1.2 mg/dL (0.3-1.0); Blood Urea Nitrogen 29 mg/dL (8-23); Calcium 9.6 mg/dL (8.6-10.3); Carbon Dioxide 26 mEq/L (23-29); Chloride 101 mEq/L (98-107); Globulin 3.1 g/dL (2.4-3.5); Glucose 161 mg/dL (70-105); Osmolality,Calculated 299 (280-300); Potassium 3.2 mEq/L (3.5-5.1); Sodium 140 mEq/L (136-145); eGFR For African Americans > 60 (> 60); eGFR For Non-African Americans > 60 (> 60)
[2020-04-03 18:38] LABS: Platelet Estimate Normal (Normal); Toxic Granulation Present (Not Present)
[2020-04-03] MEDS ORDERED: Piperacillin/Tazobactam 3.375 GM in Water for inj. (sterile) 20 ML IVP ONE (20:18)
[2020-04-03] MEDS ORDERED: Potassium Chloride 40 MEQ, Lidocaine 1% 2 ML in 0.9 % Sodium Chloride 500 ML IVPB ONE (20:36)
[2020-04-03] MEDS ORDERED: *HR* Heparin 5,000 UNIT/ML VIAL IVP ONE (20:46)
[2020-04-03] MEDS ORDERED: *HR* Heparin 5,000 UNIT/ML VIAL IVP PRN ×2 (20:46)
[2020-04-03] MEDS ORDERED: Naloxone 0.4 MG/ML INJ IVP PRN (21:04)
[2020-04-03] MEDS: Heparin 25,000UNIT/250ML 1/2NS 25,000 UNIT/250 ML IV.SOLN IVC SCH (21:52)
[2020-04-03] MEDS ORDERED: 0.9 % Sodium Chloride 1,000 ML IVC SCH (22:00)
[2020-04-03] MEDS ORDERED: *HR* Promethazine 25 MG/ML VIAL IVP PRN (22:41)
[2020-04-04 03:42] LABS: Basophils % 0.2 %; Hematocrit 46.9 % (35.3-44.9); Immature Granulocytes % 0.7 % (0-4); Lymphocytes # 0.9 K/mcL (0.6-4.6); Lymphocytes % 4.4 %; Mean Corpuscular HGB Conc 33.7 g/dL (31.6-35.5); Mean Corpuscular Hemoglobin 31.5 pg (28.0-33.3); Mean Corpuscular Volume 93.6 fL (83.0-100.0); Mean Platelet Volume 12.4 fL (9.4-12.4); Monocytes # 1.4 K/mcL (0.0-1.3); Monocytes % 7.2 %; Neutrophils # 17.5 K/mcL (1.6-8.9); Platelet Count 184 K/mcL (140-400); Red Blood Count 5.01 M/mcL (3.82-4.97); Red Cell Distribution Width 15.4 % (11.5-14.5); Segmented Neutrophils % 87.5 %
[2020-04-04 03:44] LABS: INR 1.1; Prothrombin Time 12.8 Seconds (9.4-12.1)
[2020-04-04 03:48] LABS: BUN/Creatinine Ratio 58 (6-26); Blood Urea Nitrogen 30 mg/dL (8-23); Calcium 8.1 mg/dL (8.6-10.3); Carbon Dioxide 22 mEq/L (23-29); Chloride 112 mEq/L (98-107); Glucose 153 mg/dL (70-105); Osmolality,Calculated 299 (280-300); Phosphorous 2.8 mg/dL (2.7-4.5); Potassium 4.6 mEq/L (3.5-5.1); Sodium 140 mEq/L (136-145); eGFR For African Americans > 60 (> 60); eGFR For Non-African Americans > 60 (> 60)
[2020-04-04 03:49] LABS: Hemoglobin 15.8 g/dL (11.5-15.4)
[2020-04-04] MEDS: 0.9 % Sodium Chloride 1,000 ML IVC SCH ×3 (04:26→15:43)
[2020-04-04] MEDS ORDERED: Perflutren Lipid Microsphere 1.3 ML in 0.9 % Sodium Chloride 8.7 ML IVP PRN (08:44)
[2020-04-04] MEDS: Piperacillin/Tazobactam 3.375 GM in 0.9 % Sodium Chloride Mini Bag 100 ML IVPB SCH ×2 (09:39→15:43)
[2020-04-04 10:24] LABS: Protein/Creatinine Ratio,Urine 12.94 mg/mg (0.00-0.20)
[2020-04-04] MEDS ORDERED: Loratadine 10 MG TABLET PO PRN (21:45)
[2020-04-04] MEDS: Latanoprost 2.5 ML BOTTLE BOTH EYES SCH (22:48)
[2020-04-05] MEDS: Piperacillin/Tazobactam 3.375 GM in 0.9 % Sodium Chloride Mini Bag 100 ML IVPB SCH ×4 (01:21→23:57)
[2020-04-05 04:07] LABS: Platelet Count 111 K/mcL (140-400)
[2020-04-05 04:09] LABS: Basophils # 0.1 K/mcL (0.0-0.2); Basophils % 0.4 %; Eosinophils % 0.2 %; Hematocrit 38.5 % (35.3-44.9); Hemoglobin 12.2 g/dL (11.5-15.4); Immature Granulocytes % 0.5 % (0-4); Immature Platelets 9.2 % (1.1-6.1); Lymphocytes # 1.8 K/mcL (0.6-4.6); Mean Corpuscular HGB Conc 31.7 g/dL (31.6-35.5); Mean Corpuscular Hemoglobin 30.7 pg (28.0-33.3); Mean Corpuscular Volume 96.7 fL (83.0-100.0); Mean Platelet Volume 12.1 fL (9.4-12.4); Monocytes # 1.1 K/mcL (0.0-1.3); Monocytes % 9.2 %; Neutrophils # 9.1 K/mcL (1.6-8.9); Red Blood Count 3.98 M/mcL (3.82-4.97); Red Cell Distribution Width 15.5 % (11.5-14.5); Segmented Neutrophils % 74.7 %; White Blood Count 12.2 K/mcL (4.3-11.1)
[2020-04-05 04:26] LABS: BUN/Creatinine Ratio 40 (6-26); Blood Urea Nitrogen 21 mg/dL (8-23); Calcium 7.2 mg/dL (8.6-10.3); Carbon Dioxide 23 mEq/L (23-29); Chloride 111 mEq/L (98-107); Glucose 100 mg/dL (70-105); Magnesium 1.9 mg/dL (1.6-2.6); Osmolality,Calculated 287 (280-300); Phosphorous 1.8 mg/dL (2.7-4.5); Potassium 3.7 mEq/L (3.5-5.1); Sodium 137 mEq/L (136-145); eGFR For African Americans > 60 (> 60); eGFR For Non-African Americans > 60 (> 60)
[2020-04-05 04:39] LABS: Platelet Estimate Decreased (Normal)
[2020-04-05] MEDS: 0.9 % Sodium Chloride 1,000 ML IVC SCH ×4 (06:18→23:57)
[2020-04-05] MEDS: Heparin 25,000UNIT/250ML 1/2NS 25,000 UNIT/250 ML IV.SOLN IVC SCH (08:11)
[2020-04-05] MEDS ORDERED: polyethylene glycoL 3350 17 GM POWD.PACK PO PRN (12:42)
[2020-04-05 19:13] LABS: Bilirubin,Urine Negative (Negative); Blood,Urine Trace-lysed (Negative); Clarity,Urine Clear (Clear); Color,Urine Yellow (Yellow); Glucose,Urine (UA) Normal (Normal); Ketones,Urine Negative (Negative); Leukocyte Esterase,Urine Negative (Negative); Nitrite,Urine Negative (Negative); Protein,Urine Negative (Neg-Trace); Urobilinogen,Urine Normal (Normal)
[2020-04-05 19:24] LABS: RBC,Urine 0-3 per hpf (0-3); WBC,Urine 0-3 per hpf (0-3)
[2020-04-05] MEDS: Latanoprost 2.5 ML BOTTLE BOTH EYES SCH (21:22)
[2020-04-06] MEDS: Heparin 25,000UNIT/250ML 1/2NS 25,000 UNIT/250 ML IV.SOLN IVC SCH (07:02)
[2020-04-06 07:04] LABS: Basophils # 0.1 K/mcL (0.0-0.2); Basophils % 0.5 %; Eosinophils # 0.1 K/mcL (0.0-0.6); Eosinophils % 0.6 %; Hematocrit 42.2 % (35.3-44.9); Immature Granulocytes % 0.3 % (0-4); Lymphocytes # 1.4 K/mcL (0.6-4.6); Lymphocytes % 11.6 %; Mean Corpuscular HGB Conc 33.2 g/dL (31.6-35.5); Mean Corpuscular Hemoglobin 31.7 pg (28.0-33.3); Mean Corpuscular Volume 95.7 fL (83.0-100.0); Mean Platelet Volume 12.2 fL (9.4-12.4); Monocytes % 8.4 %; Neutrophils # 9.3 K/mcL (1.6-8.9); Platelet Count 120 K/mcL (140-400); Red Blood Count 4.41 M/mcL (3.82-4.97); Red Cell Distribution Width 15.1 % (11.5-14.5); Segmented Neutrophils % 78.6 %; White Blood Count 11.8 K/mcL (4.3-11.1)
[2020-04-06 07:28] LABS: BUN/Creatinine Ratio 20 (6-26); Blood Urea Nitrogen 10 mg/dL (8-23); Calcium 7.8 mg/dL (8.6-10.3); Carbon Dioxide 23 mEq/L (23-29); Chloride 109 mEq/L (98-107); Glucose 113 mg/dL (70-105); Magnesium 1.8 mg/dL (1.6-2.6); Osmolality,Calculated 288 (280-300); Potassium 3.4 mEq/L (3.5-5.1); Sodium 139 mEq/L (136-145); eGFR For African Americans > 60 (> 60); eGFR For Non-African Americans > 60 (> 60)
[2020-04-06] MEDS: Piperacillin/Tazobactam 3.375 GM in 0.9 % Sodium Chloride Mini Bag 100 ML IVPB SCH ×2 (07:35→17:13)
[2020-04-06] MEDS ORDERED: lisinopriL 20 MG TABLET PO SCH (11:00)
[2020-04-06] MEDS ORDERED: lisinopriL 20 MG TABLET PO ONE (12:54)
[2020-04-06] MEDS: Aspirin Enteric Coated 81 MG Tablet PO SCH (14:49)
[2020-04-06] MEDS: Latanoprost 2.5 ML BOTTLE BOTH EYES SCH (20:49)
[2020-04-07 05:50] LABS: Basophils # 0.1 K/mcL (0.0-0.2); Basophils % 0.6 %; Eosinophils # 0.2 K/mcL (0.0-0.6); Eosinophils % 1.9 %; Hematocrit 40.1 % (35.3-44.9); Hemoglobin 13.1 g/dL (11.5-15.4); Immature Granulocytes % 0.3 % (0-4); Lymphocytes # 1.2 K/mcL (0.6-4.6); Lymphocytes % 12.7 %; Mean Corpuscular HGB Conc 32.7 g/dL (31.6-35.5); Mean Corpuscular Hemoglobin 30.8 pg (28.0-33.3); Mean Corpuscular Volume 94.1 fL (83.0-100.0); Mean Platelet Volume 12.5 fL (9.4-12.4); Monocytes # 0.8 K/mcL (0.0-1.3); Monocytes % 8.7 %; Neutrophils # 7.4 K/mcL (1.6-8.9); Platelet Count 130 K/mcL (140-400); Red Blood Count 4.26 M/mcL (3.82-4.97); Red Cell Distribution Width 15.1 % (11.5-14.5); Segmented Neutrophils % 75.8 %; White Blood Count 9.7 K/mcL (4.3-11.1)
[2020-04-07 06:14] LABS: BUN/Creatinine Ratio 24 (6-26); Blood Urea Nitrogen 11 mg/dL (8-23); Carbon Dioxide 24 mEq/L (23-29); Chloride 108 mEq/L (98-107); Glucose 118 mg/dL (70-105); Magnesium 1.9 mg/dL (1.6-2.6); Osmolality,Calculated 286 (280-300); Phosphorous 2.4 mg/dL (2.7-4.5); Potassium 3.4 mEq/L (3.5-5.1); Sodium 138 mEq/L (136-145); eGFR For African Americans > 60 (> 60); eGFR For Non-African Americans > 60 (> 60)
[2020-04-07] MEDS ORDERED: Potassium Chloride Elixir 20 MEQ/15 ML UDC PO ONE (08:16)
[2020-04-07] MEDS ORDERED: lisinopriL 20 MG TABLET PO SCH (09:00)
[2020-04-07] MEDS: Aspirin Enteric Coated 81 MG Tablet PO SCH (09:26)
[2020-04-07 15:40] LABS: Adenovirus Not Detected (Not Detect); Bordetella Pertussis Not Detected (Not Detect); Chlamydophila pneumoniae Not Detected (Not Detect); Coronavirus 229E Not Detected (Not Detect); Coronavirus HKU1 Not Detected (Not Detect); Coronavirus NL63 Not Detected (Not Detect); Coronavirus OC43 Not Detected (Not Detect); Human Metapneumovirus Not Detected (Not Detect); Human Rhinovirus/Enterovirus Not Detected (Not Detect); Influenza A Subtype 2009 H1 Not Detected (Not Detect); Influenza B Not Detected (Not Detect); Mycoplasma pneumoniae Not Detected (Not Detect); Parainfluenza Virus 1 Not Detected (Not Detect); Parainfluenza Virus 2 Not Detected (Not Detect); Parainfluenza Virus 3 Not Detected (Not Detect); Parainfluenza Virus 4 Not Detected (Not Detect); Respiratory Syncytial Virus Not Detected (Not Detect); SARS-CoV-2 Not Detected (Not Detect)
[2020-04-07] MEDS ORDERED: Silvasorb 44.4 ML TUBE TP SCH (16:15)
[2020-04-07 16:35] VITALS: BP 165/84
== END 2020-04-07 18:29 | DRG 871 ==
LOC: EMEROOARM 16:58 → 2ANU 16:58 → SUATTDRO 04-04 18:05
PROVIDERS: ADMIT Student in an Organized Health Care Education/Training Program; ATTEND Internal Medicine